=== PATIENT | male | born 1975 ===

== ENCOUNTER 2022-05-23 22:14 | Emergency (ER) | payer BC, SELFPAY ==
[2022-05-23 22:17] VITALS: BP 136/85; PULSE 63; RESP 18; TEMP 36.3; O2SAT 97; BMI 26.6
[2022-05-24 00:08] VITALS: BP 139/87; PULSE 67; RESP 18; O2SAT 96
== END 2022-05-24 03:41 | disposition left against medical advice (07) ==
PROVIDERS: Emergency Provider Emergency Medicine
DX: R51.9 Headache, unspecified (principal)
CPT/HCPCS: 99281; 99283

== ENCOUNTER 2023-06-21 18:22 | Emergency (ER) | payer BC, SELFPAY ==
--- NOTE | ~2023-06-21 | XR_ITS ---
EXAMINATION: XR FOREARM, LEFT CLINICAL INFORMATION: Swelling and redness. COMPARISON: None available. TECHNIQUE: AP and lateral views of the left forearm were obtained. FINDINGS: Diffuse soft tissue swelling more so along the antecubital fossa and anterior forearm. I do not appreciate any radiopaque foreign body or soft tissue gas. Underlying bony structures are unremarkable with no acute fracture or dislocation. XR/XR forearm LT 2V IMPRESSION: Diffuse soft tissue swelling. No radiopaque foreign body or soft tissue gas. No acute underlying bony abnormality.
--- NOTE | ~2023-06-21 | CT_ITS ---
EXAMINATION: CT FOREARM LT WITH IV CONTRAST CLINICAL INFORMATION: Left arm edema and erythema. Concern for necrotizing fasciitis. COMPARISON: None available. TECHNIQUE: Contiguous axial CT scan images of the left forearm obtained after the intravenous administration of 85 mL Omnipaque 350. Sagittal and coronal reformatted images obtained. This CT examination was performed using dose optimization techniques as appropriate, variously including the following: *Automated exposure control *Adjustment of mA and/or kV according to patient size (this includes techniques or standardized protocols for targeted exams where dose is matched to indication/reason for exam; i.e. extremities or head) *Use of iterative reconstruction technique DLP: 192 mGy-cm FINDINGS: The bone mineralization is within normal limits. There is no fracture or bony erosive change. There is cutaneous thickening most pronounced at the proximal forearm associated with subcutaneous infiltration without definitive drainable fluid collection. There is no subcutaneous emphysema. The vascular structures are unremarkable. CT/CT forearm LT w IV con IMPRESSION: No acute osseous abnormality. Cutaneous thickening most prominent at the proximal forearm. Developing phlegmon in this region considered. No definitive drainable fluid collection. No subcutaneous emphysema.
--- NOTE | 2023-06-21 19:03 | ED_ITS ---
HPI - General Adult General Chief complaint: Animal Bite Stated complaint: spider bite Time Seen by Provider: 06/21/23 20:31 Source: patient Mode of arrival: ambulatory Limitations: no limitations History of Present Illness HPI narrative: 48 yold male presents to the ED for left arm spreading redness and warmth after bite unto left arm. patient does not know what bit him. patient denies any fever, chills, chest pain, shortness of breath, IV drug use, or any recent trauma to the area. Related Data Previous Rx's Medication Instructions Recorded cephalexin 500 mg capsule 500 mg PO QID 7 days #28 caps 06/22/23 doxycycline hyclate 100 mg capsule 100 mg PO BID 7 days #14 caps 06/22/23 naproxen 500 mg tablet 500 mg PO BID PRN pain 7 days #14 06/22/23 tabs Allergies Allergy/AdvReac Type Severity Reaction Status Date / Time No Known Allergies Allergy Verified 05/23/22 22:17 [No Known Allergies*] Review of Systems 2 Review of Systems: left arm redness/swelling Yes all other systems are reviewed and are negative [facility] Social History Social History Alcohol intake: current Alcohol intake frequency: a few times a month Smoked in Last 30 Days: No Use of substances other than those prescribed or required for medical reasons: No Advance Directives: No Advance Directives Information Provided: No Physical Exam ED Vital Signs: Vital Signs - 24 hr 06/21/23 19:04 06/21/23 20:12 06/22/23 00:54 Temperature 97.9 F 99.0 F 98.6 F Pulse Rate 100 89 82 Respiratory Rate 20 18 18 Blood Pressure 131/65 140/89 H 136/79 Pulse Oximetry 98 98 98 Oxygen Delivery Method Room Air Room Air Room Air BMI result Body Mass Index 27.4 Const General: cooperative, healthy appearing, comfortable, no acute distress and well developed Orientation/consciousness: oriented to person, oriented to place, oriented to time and patient oriented x3 HENMT Head: Yes normal to inspection, Yes No palpable skull fracture present, Yes normocephalic and Yes atraumatic Eyes General: appearance normal, both eyes and all related structures Neck Neck: Yes normal visual inspection, Yes full ROM, Yes no lymphadenopathy, Yes no meningeal signs, Yes trachea midline, Yes supple, No anterior neck swelling and No tender Chest Chest palpation & inspection: normal inspection of the chest and normal palpation of entire chest wall Resp Effort & Inspection: normal respiratory effort and able to speak in complete sentences Auscultation: clear to auscultation bilaterally Cardio Jugular venous distension: no JVD Heart sounds: S1 normal heart sound present and S2 normal heart sound present GI Inspection: Yes normal to inspection and No abdominal wall ecchymosis Palpation (GI): Soft to palpation, not firm, nontender, no guarding and not rigid General: No CVA tenderness and Yes no CVA tenderness Back/Spine/Pelvis Back: no CVA tenderness, No CVA tenderness and No back tenderness Skin General skin exam: no rashes or lesions noted, elasticity normal and turgor normal Neuro General: oriented to person, oriented to place, oriented to time, patient oriented x3, gait normal, tone normal, moves all extremities, Normal light touch and pain sensation, no meningeal signs, no focal motor deficits, CN's II-XI intact bilaterally and normal sensation to monofilament Extrem Other: Bedside ultrasound based on area of induration and mostly cobblestone cellulitic changes. Barely small amount of pus. Psych Appearance: grossly normal, well kempt and not disheveled Course Course Course Narrative: RME 48-year-old male presents for evaluation abscess to his left forearm. He reports he noticed some sort of bite 5 days ago and yesterday got significantly more painful more red and swollen. Medications Administered Discontinued Medications Generic Name Dose Route Start Last Admin Trade Name Freq PRN Reason Stop Dose Admin Diphenhydramine HCl 25 mg 06/21/23 23:39 06/21/23 23:55 Diphenhydramine Hcl 50 Mg/Ml Vial IVPUSH 06/21/23 23:40 25 mg ONCE ONE Administration Vancomycin HCl 2,000 mg in 500 mls @ 250 mls/hr 06/21/23 20:54 06/21/23 23:05 Vancomycin/Ns IV 06/21/23 22:53 Infused ONCE ONE Infusion Piperacillin Sod/Tazobactam 50 mls @ 100 mls/hr 06/21/23 20:54 06/21/23 21:42 Sod 3.375 gm/ Sodium Chloride IV 06/21/23 21:23 Infused ONCE ONE Infusion Sodium Chloride 1,000 mls @ 999 mls/hr 06/21/23 21:11 06/22/23 00:54 Ns IV 06/21/23 22:11 Infused .Q1H1M STA Infusion Sodium Chloride 1,000 mls @ 999 mls/hr 06/21/23 21:11 06/22/23 00:54 Ns IV 06/21/23 22:11 Infused .Q1H1M STA Infusion Iohexol 100 ml 06/21/23 22:10 06/21/23 22:10 Iohexol 350 Mg/Ml 100 Ml Infus..Btl IV 06/21/23 22:11 85 ml ONCE ONE Administration Methylprednisolone Sodium Succinate 125 mg 06/21/23 23:39 06/21/23 23:55 Methylprednisolone Sod Succ 125 Mg/2 Ml Vial IVPUSH 06/21/23 23:40 125 mg ONCE ONE Administration Medical Decision Making Medical Decision Making [facility] Narrative: 48 yold male presnts to the ED for left forearm redness and warmth after bein bitten by insect. Patient is not aware of what bit him. Patient states no fever or chils. patient is not in distress. Bedside ultrasound barely shows any pus, more cobblestone cellulitc changes. labs was ordered. lactic acid of 3. ESR, CRP, and upper extremity ct scan ordered. 12:35am: Patient lactic improved after fluid. CT scan of left lower extremity negative for necrotizing fasciitis, osteomyelitis, or abscess. Case discussed with Dr. Terry hospitalist who states patient could be discharged and placed on trial of oral antibiotics for cellulitis. Patient is safe for discharge. Patient had allergic reaction to vancomycin and given Benadryl and prednisone. Patient will be discharged with Keflex and ox I Differential Diagnosis Differential Diagnoses: The differential diagnosis associated with the presentation includes (Cellulitis, necrotizing fasciitis, abscess. DVt) Admission/Observation Consideration of admission/observation: Escalation of care including admission/observation considered Consult Healthcare Provider Management of the patient was discussed with: Hospitalist (Dr. Terry) Lab Data [facility] Lab Attestation statement: I reviewed the patient's lab results. 06/21/23 20:07 06/21/23 20:07 Labs: Lab Results 06/21/23 06/21/23 Range/Units 20:07 22:58 WBC 11.0 H (4.8-10.8) X10*3/uL RBC 4.92 (4.60-5.80) X10*6/uL Hgb 15.2 (14.0-18.0) g/dl Hct 45.6 (42.0-52.0) % MCV 92.7 (80.0-98.0) fL MCH 30.9 (27.0-33.0) pg MCHC 33.3 (31.0-36.0) g/dl RDW 13.1 (11.0-16.0) % Plt Count 265 (160-400) X10*3/uL MPV 9.7 (9.4-12.4) fL Immature Gran % (Auto) 0.5 H (0.0-0.4) % Neut % (Auto) 75.4 H (45-73) % Lymph % (Auto) 15.0 L (20-40) % [place] % (Auto) 7.3 (2-11) % Eos % (Auto) 1.4 (0-4) % Baso % (Auto) 0.4 (0-2) % Lymph # (Auto) 1.7 (1.2-4.9) X10*3/uL [place] # (Auto) 0.8 (0.1-1.2) X10*3/uL Eos # (Auto) 0.2 (0.0-0.4) X10*3/uL Baso # (Auto) 0.0 (0.0-0.2) X10*3/uL Abs Immat Gran (auto) 0.05 H (0.00-0.03) X10*3/uL Absolute Neuts (auto) 8.3 (2.0-8.3) x10*3/uL Absolute Nucleated RBC 0.000 (0.0-0.012) X10*3/uL Nucleated RBC % (auto) 0.0 (0.0-0.2) /100WBC ESR 13 (0-15) MM/HR Sodium 142 (135-145) mmol/L Potassium 3.6 (3.3-5.1) mmol/L Chloride 103 (96-108) mmol/L Carbon Dioxide 28 (22-29) mmol/L Anion Gap 15 (12-20) BUN 15 (9-16) mg/dL Creatinine 1.03 (0.5-1.4) mg/dL Estim Creat Clear Calc 83.0 Estimated GFR > 60 Random Glucose 77 (60-115) mg/dL Lactic Acid 3.4 H* (0.5-2.0) mmol/L Lactic Acid F/U @ 2Hr 1.1 (0.5-2.0) mmol/L Calcium 10.2 (8.4-10.2) mg/dL C-Reactive Protein 3.30 H (< or = 0.50) mg/dL Independent Interpretation I performed an independent interpretation of an: Plain X-Ray and CT Scan Radiology Impression Discussion of test interpretation with radiology: I have reviewed the radiologist's reading. External Record Review External record reviewed: Other (Prior Visits) Prescription Management I considered prescription management with: Pain Medication and Antibiotic Discharge Plan Discharge Clinical Impression: Bite by animal, Cellulitis of arm, left Patient Disposition: Home, Self-Care Instructions: Animal Bite (ED), Cellulitis (ED) Additional Instructions: Return to the ED immediately for any worsening redness, increased swelling, fever, chills, chest pain, pus discharge, foul odor, shortness of breath, or any other concerning symptoms. Please follow-up with the primary care provider. Prescriptions: New cephalexin 500 mg capsule 500 mg PO QID 7 Days Qty: 28 0RF doxycycline hyclate 100 mg capsule 100 mg PO BID 7 Days Qty: 14 0RF naproxen 500 mg tablet 500 mg PO BID PRN (Reason: pain) 7 Days Qty: 14 0RF Stand Alone Forms: Work/School Release Interventions: ED Discharge Assessment Last Done: 06/22/23 00:55 Discharge Date/Time: 06/22/23 00:56 Print Language: Mosotho
[2023-06-21 19:04] VITALS: BP 131/65; PULSE 100; RESP 20; TEMP 36.6; O2SAT 98; BMI 27.4
[2023-06-21 20:12] VITALS: BP 140/89; PULSE 89; RESP 18; TEMP 37.2; O2SAT 98
[2023-06-21 20:13] LABS: MANUAL DIFF FLAG NO
--- NOTE | 2023-06-21 20:14 | PC.NURSE ---
pt a&ox4, respirations even and unlabored. pt reports possibly being bit by a spider 5 days ago at his house. he states he is unaware if her was sleeping or awake when the bite happened. pt denies fever, nausea, vomiting diarrhea and chest pains. pt reports his pain is barely there. site is to be noted to be red, warm to touch with raised red bump with a scab in the center of the left forearm. pt vss. iv established and labs obtained and sent at this time.
[2023-06-21 20:15] LABS: Basophils Percent Auto 0.4 % (0-2); Eosinophils Absolute Auto 0.2 X10*3/uL (0.0-0.4); Eosinophils Percent Auto 1.4 % (0-4); Hematocrit 45.6 % (42.0-52.0); Hemoglobin 15.2 g/dl (14.0-18.0); Imm Gran Abs Auto 0.05 X10*3/uL (0.00-0.03); Imm Gran Pct Auto 0.5 % (0.0-0.4); Lymphocytes Absolute Auto 1.7 X10*3/uL (1.2-4.9); Mean Corpuscular HGB Conc 33.3 g/dl (31.0-36.0); Mean Corpuscular Hemoglobin 30.9 pg (27.0-33.0); Mean Corpuscular Volume 92.7 fL (80.0-98.0); Mean Platelet Volume 9.7 fL (9.4-12.4); Monocytes Absolute Auto 0.8 X10*3/uL (0.1-1.2); Monocytes Percent Auto 7.3 % (2-11); Neutrophils Absolute Auto 8.3 x10*3/uL (2.0-8.3); Neutrophils Percent Auto 75.4 % (45-73); Platelet Count 265 X10*3/uL (160-400); Red Blood Count 4.92 X10*6/uL (4.60-5.80); Red Cell Distribution Width 13.1 % (11.0-16.0)
[2023-06-21 20:33] LABS: Anion Gap 15 (12-20); Blood Urea Nitrogen 15 mg/dL (9-16); Calcium 10.2 mg/dL (8.4-10.2); Carbon Dioxide 28 mmol/L (22-29); Chloride 103 mmol/L (96-108); Estimated Glomerular Filt Rate > 60; Glucose Random 77 mg/dL (60-115); Potassium 3.6 mmol/L (3.3-5.1); Sodium 142 mmol/L (135-145)
[2023-06-21 20:40] LABS: Lactic Acid 3.4 mmol/L (0.5-2.0)
--- NOTE | 2023-06-21 20:41 | PC.NURSE ---
this RN received critical lab results for this pt - lactic acid 3.4 - ED provider Jim Chris notified and aware at this time.
[2023-06-21] MEDS: Piperacillin Sodium/Tazobactam 3.375 GM in 0.9 % Sodium Chloride 50 ML IV (21:07)
--- NOTE | 2023-06-21 21:25 | PHA.MEDREC ---
Pharmacy Consult ? Medication Reconciliation Pharmacy has completed the medication reconciliation. Patient reports no medications at home. Mirtha Meng, AlphonsoD
[2023-06-21] MEDS: vancomycin/NS 2,000 MG/500 ML PLAST..BAG 250 MG IV (21:38)
[2023-06-21] MEDS: 0.9 % Sodium Chloride 1,000 ML 999 ML IV ×2 (21:38→23:04)
--- NOTE | 2023-06-21 21:42 | PC.NURSE ---
first liter of fluid and vanco hanging and running at this time. pt tolerating well.
[2023-06-21 21:43] LABS: Erythrocyte Sedimentation Rate 13 MM/HR (0-15)
[2023-06-21] MEDS: iohexoL 350 MG/ML 100 ML INFUS..BTL IV (22:10)
[2023-06-21 22:11] LABS: Reflex Lactate? Lactic Acid Added
--- NOTE | 2023-06-21 22:15 | PC.NURSE ---
delay in second bag of fluids due to pt only having one line and having the first bag and vanco currently running.
--- NOTE | 2023-06-21 23:04 | PC.NURSE ---
pt reporting itching neck and hives after 300ML of the vancomycin. Jim ACE checked out pt, verbal order to d/c vanco at this time. pt air way patent and pt speaking in full sentences.
[2023-06-21 23:16] LABS: ~Lactic Acid-LAB USE ONLY 1.1 mmol/L (0.5-2.0)
[2023-06-21] MEDS: diphenhydrAMINE HCL 50 MG/ML VIAL 25 MG IVPUSH (23:55)
[2023-06-21] MEDS: methylPREDNISolone Sod Succ 125 MG/2 ML VIAL IVPUSH (23:55)
[2023-06-22 00:54] VITALS: BP 136/79; PULSE 82; RESP 18; TEMP 37; O2SAT 98
== END 2023-06-22 00:56 | disposition home or self-care (01) ==
PROVIDERS: Physician Assistant; Emergency Provider Internal Medicine; PCP Nurse Practitioner Family
DX: L03.114 Cellulitis of left upper limb (principal); T63.301A Toxic effect of unspecified spider venom, accidental (unintentional), initial encounter; M79.602 Pain in left arm; Y92.9 Unspecified place or not applicable; Z79.899 Other long term (current) drug therapy
CPT/HCPCS: 36415; 73090; 73201; 80048; 83605; 85025; 85652; 86140; 87040; 96361; 96365; 96375; 99285; J1200; J2543; J2930; J3370; Q9967

== ENCOUNTER 2024-05-09 05:53 | Emergency (ER) | payer SELFPAY ==
[2024-05-09 05:55] VITALS: BP 104/58; PULSE 78; RESP 17; TEMP 36.6; BMI 28.1
[2024-05-09 06:39] VITALS: BP 106/67; PULSE 73; RESP 17; TEMP 36.8; O2SAT 97
--- NOTE | 2024-05-09 06:40 | ED.GENADULT ---
HPI - General Adult General Chief complaint: Abdominal Pain Stated complaint: abd pain Time Seen by Provider: 05/09/24 06:40 History of Present Illness ED Provider: Marla NEGRO narrative: The patient is a 48 year-old male who is generally in good health. He says that for the last 3 weeks he has been having intermittent pains in his left groin. Sometimes he feels that his pain is in his testicles. Sometimes he feels the discomfort is in the rectum. Works for [employer] and often has to do significant lifting. He says he can not really relate the pain to a particular episode of lifting but he does acknowledge that when he rests the pain is less likely to bother him then when he is active and lifting. He has had no difficulty urinating. He has had no change in his bowel habits. He has had no fever, sweats, chills. He has not noticed any swelling in his left groin. The pain has been intermittent for 3 weeks. This morning he was at work (he works the overnight shift) at [employer] when his pain seemed to get worse after doing lifting. He told his division supervisor that he was quite uncomfortable and he came to the hospital. The patient says he is on no medications. He last had a primary care doctor 2 years ago. He does not currently have insurance and would like to minimize testing. He says he will have insurance active in 3 weeks. Related Data Previous Rx's ?Medication ?Instructions ?Recorded cephalexin 500 mg capsule 500 mg PO QID 7 days #28 caps 06/22/23 doxycycline hyclate 100 mg capsule 100 mg PO BID 7 days #14 caps 06/22/23 naproxen 500 mg tablet 500 mg PO BID PRN pain 7 days #14 06/22/23 tabs Allergies Allergy/AdvReac Type Severity Reaction Status Date / Time No Known Allergies Allergy Verified 05/09/24 05:56 [No Known Allergies*] Review of Systems Review of Systems: Yes all other systems are reviewed and are negative [facility] Social History Social History Alcohol intake: current Alcohol intake frequency: a few times a month Advance Directives: No Advance Directives Information Provided: No Do you have a plan to hurt others: No Plan Physical Exam ED Vital Signs: Vital Signs - 24 hr 05/09/24 05:55 05/09/24 06:39 05/09/24 07:14 Temperature 97.9 F 98.3 F 98.3 F Pulse Rate 78 73 73 Respiratory Rate 17 17 17 Blood Pressure 104/58 L 106/67 106/67 Pulse Oximetry 97 97 Oxygen Delivery Method Room Air Room Air Room Air BMI result Body Mass Index 28.1 Const Other: Alert, pleasant, cooperative. He does not appear in acute distress HENMT Other: Face is symmetrical, mucous membranes moist. Eyes General: appearance normal, both eyes and all related structures Conjunctivae: conjunctivae normal Pupils: Equal, round and reactive pupils present EOM: EOMs intact bilaterally Neck Neck: Yes full ROM Resp Effort & Inspection: normal respiratory effort Auscultation: clear to auscultation bilaterally Cardio Rate: regular rate Rhythm: regular rhythm Heart sounds: S1 normal heart sound present and S2 normal heart sound present GI Other: The abdomen is soft and nontender. no distension. Other: The patient has normal external genitalia. No scrotal swelling. Scrotal contents are normal. Evaluation of the left inguinal canal for hernia did not demonstrate any palpable hernial sac in the inguinal canal. However when I palpate over the inguinal canal externally I thought I felt something that might have been a small hernial sac that was mobile. Skin Other: Skin is dry and unremarkable Neuro Other: the patient is awake and alert with normal mental status. He has grossly intact cranial nerves and moves his extremities normally. Gait is normal. He is grossly neurologically intact. Cranial nerves: Yes Equal, round and reactive pupils present Extrem Other: No peripheral edema Medical Decision Making Medical Decision Making MDM Narrative: the patient is a 48-year-old male who presents with 3 weeks of intermittent left groin pain. Clinically I think the patient's physical exam is suggestive of a left inguinal hernia which is not extending into the scrotal sac. I suspect this might be a direct hernia. I do not believe he has any incarcerated or strangulated hernia. I think the patient may be referred to the outpatient surgical clinic for further management of this problem. In the meantime I have written a work note for light duty and no heavy lifting. He should return if worse. Discharge Plan Discharge Clinical Impression: Left inguinal hernia Patient Disposition: Home, Self-Care Instructions: Inguinal Hernia (ED) Additional Instructions: I think the most likely explanation for your symptoms is a left groin hernia. Please contact the surgery office to set up an appointment for further management of this problem. In the meantime I would avoid any heavy lifting or straining or any other activities that might exacerbate your discomfort. If you feel things are particularly bad I would recommend lying down and trying to massage your hernia back into place. If significantly uncomfortable please return to the emergency department for further evaluation. Prescriptions: No Action cephalexin 500 mg capsule 500 mg PO QID 7 Days Qty: 28 0RF doxycycline hyclate 100 mg capsule 100 mg PO BID 7 Days Qty: 14 0RF naproxen 500 mg tablet 500 mg PO BID PRN (Reason: pain) 7 Days Qty: 14 0RF Referrals: [facility] [Provider Group] (Left inguinal hernia) Stand Alone Forms: Work/School Release Interventions: ED Discharge Assessment Last Done: 05/09/24 07:14 Discharge Date/Time: 05/09/24 07:20 Print Language: [place] Citizen
--- NOTE | 2024-05-09 07:11 | PC.NURSE ---
Pt comes to ED today from work with c/o L abd pain x2-3 months. VSS, A&Ox3, walk independently. Pt seen by ED Provider and set for D/C. Pt reports D/C insurance not being active just yet he is not in need of further treatment as his pain is from a L sided hernia. Pt declines further care and requets d/c paperwork and work note.
[2024-05-09 07:14] VITALS: BP 106/67; PULSE 73; RESP 17; TEMP 36.8; O2SAT 97
== END 2024-05-09 07:20 | disposition home or self-care (01) ==
PROVIDERS: Emergency Provider Emergency Medicine
DX: K40.90 Unilateral inguinal hernia, without obstruction or gangrene, not specified as recurrent (principal); R10.32 Left lower quadrant pain; K62.89 Other specified diseases of anus and rectum; N50.812 Left testicular pain; N50.811 Right testicular pain
CPT/HCPCS: 99283; 99284

== ENCOUNTER 2024-07-11 09:11 | Outpatient (AMB) | payer BC, SELFPAY ==
--- NOTE | 2024-07-11 09:15 | A.OFFVIS_ITS ---
Vital Signs 07/11/24 09:22 Height 5 ft 8 in Weight 184 lb BMI 28.0 BP 120/60 Blood Pressure Location Rt brachial Position Sitting Pulse 76 Intake Visit Reasons: Inguinal Hernia Intake Note: Patient referred after ER visit on 05-09-2024 for inguinal hernia. Present for 4-5m. Patient c/o: pain with certain movements. Retail Representative Required: No Accompanied by: Self / Same As Patient Allergies No Known Allergies [No Known Allergies*] Allergy (Verified 07/11/24 09:20) HPI Comments Details: Patient presents with a 5 month history of symptomatic enlarging left inguinal hernia. Because of progression of symptoms, he presents here for further evaluation and would like to have it repaired. Patient was employed with [employer] and the significant heavy lifting at his place of employment. Patient states that on occasion of the hernia has protruded with strenuous activities and the patient was to manually reduce it himself. He has no other GI issues or complaints. He is tolerating a diet. Having regular bowel habits. Chart was reviewed and patient evaluated [facility] Medical History (Updated 07/11/24 @ 09:21 by WOODY Meyers) Rotator cuff arthropathy of left shoulder Social History (Updated 07/11/24 @ 09:21 by WOODY Meyers) Alcohol intake: current Alcohol intake frequency: a few times a month Patient Tobacco Use Status: Never used Tobacco Physical Exam Vital Signs: Last Vital Signs Pulse 76 07/11/24 09:22 BP 120/60 07/11/24 09:22 BMI result Body Mass Index 28.0 Chest Other: Chest breath sounds bilaterally, HS 1 in 2 GI Other: Patient was examined both supine and standing with Valsalva. Abdomen is soft and benign. Right groin negative. Genitalia within normal limits. Small to moderately sized reducible left inguinal hernia. Assessment & Plan Assessment & Plan (1) Left inguinal hernia: Code(s): K40.90 - Unilateral inguinal hernia, without obstruction or gangrene, not specified as recurrent Category: Medical Plan Risks, benefits, and alternatives of open left inguinal hernia repair with mesh were reviewed with the patient and included but not limited to bleeding, infection, recurrence, numbness, pain, scarring and the patient wished to proceed. All questions answered. Arrangements were made for this. Medications: Refilled doxycycline hyclate 100 mg PO BID 14 caps 0RF 7 days Discontinued cephalexin Discontinued Reason: Patient no longer taking 500 mg PO QID 7 days 28 caps 0RF Coding Level of Care Code New Pt Level 5 (98817) Diagnoses Left inguinal hernia K40.90
[2024-07-11 09:22] VITALS: BP 120/60; PULSE 76; BMI 28.0
== END 2024-07-11 09:35 | disposition home or self-care (01) ==
PROVIDERS: Visit Provider Surgery
DX: K40.90 Unilateral inguinal hernia, without obstruction or gangrene, not specified as recurrent (principal)
CPT/HCPCS: 99204

== ENCOUNTER 2024-08-25 09:21 | Day surgery (SDC) | payer BC, SELFPAY ==
[2024-08-23 13:45] VITALS: BMI 28.0
--- NOTE | 2024-08-23 14:42 | HO.ANESPROP2 ---
Documented by User: Cassy Sifuentes NP 08/23/24 14:43 HPI - Anesthesia Eval Consult details Narrative: 49yo M for Repair Hernia Inguinal with mesh [facility] Past Medical History Medical History Rotator cuff arthropathy of left shoulder Surgical History Surgical History Surgical history unknown Social History Social History Are you a primary customer care representative to a significant other at home: No Do you presently have visiting nurse or other home services: No Alcohol intake: current Alcohol intake frequency: a few times a month Patient Tobacco Use Status: Never used Tobacco Have you been hit, kicked, punched, or otherwise hurt by someone within the past year? If so, by whom?: No Are you DNR?: No Advance Directives: No Advance Directives Information Provided: Yes Recently lost weight without trying: No Nutrition Risks: No Nutritional Risk Meds Allergies Allergy/AdvReac Type Severity Reaction Status Date / Time No Known Allergies Allergy Verified 08/25/24 09:53 [No Known Allergies*] Exam Height,Weight and Vital Signs: Height 5 ft 8 in Weight 83.461 kg Assessment and Plan Assessment Anesthesia Assessment: Chart Reviewed Documented by User: Lisa Brandt MD 08/25/24 10:04 [facility] Past Medical History Medical History Rotator cuff arthropathy of left shoulder Surgical History Surgical History Surgical history unknown History of Problems with Anesthesia: No Social History Social History Are you a primary customer care representative to a significant other at home: No Do you presently have visiting nurse or other home services: No Alcohol intake: current Alcohol intake frequency: a few times a month Patient Tobacco Use Status: Never used Tobacco Have you been hit, kicked, punched, or otherwise hurt by someone within the past year? If so, by whom?: No Are you DNR?: No Advance Directives: No Advance Directives Information Provided: Yes Recently lost weight without trying: No Nutrition Risks: No Nutritional Risk Meds Allergies Allergy/AdvReac Type Severity Reaction Status Date / Time No Known Allergies Allergy Verified 08/25/24 09:53 [No Known Allergies*] Exam Airway Mallampati Class: II TM Dist: >3cm Neck ROM: Full Loose/Missing/Broken Teeth: No Heart: RRR Lungs: CTA Assessment and Plan Assessment Anesthesia Assessment: Anesthesia Plan Discussed Final Anesthetic Review History of Problems with Anesthesia: No NPO: Yes ASA Class: I Final Preanesthetic Review: Meds/Allgs Chart Reviewed, Consent Obtained/Reviewed and Anes Risks/Benef Reviewed Patient Risk: Low Procedure Risk: Low Anesthetic Plan Anesthetic Plan: GA Disposition: Standard PACU
--- NOTE | 2024-08-24 13:39 | MHC.SHP ---
Pre-Procedural Eval Section A - 24 Hr Update-Section A only Date of Service: 08/25/24 The patient is an INPATIENT: No Changes since office visit: No Cold of Flu in the past 2 weeks, No New Medical Problems, No Changes in Medication and No Patient answered all questions Section B - Complete if H&P > 30 days Chief Complaint: Unilateral inguinal hernia, without obstruction Allergies: Allergies Allergy/AdvReac Type Severity Reaction Status Date / Time No Known Allergies Allergy Verified 07/11/24 09:20 [No Known Allergies*] Review of Systems Sugical H&P ROS: Negative: Constitution, Cardiovascular, Respiratory, Neurological, Psychiatric, Hem-Onc, Allergic/Immunologic, Gastrointestinal, Genitourinary, Musculoskeletal, Integumentary, Endocrine and Eyes/Ears/Nose/Throat Exam Surgical H&P Exam: Normal: HEENT, Normal: Heart, Normal: Lungs, Normal: Extremities, Normal: Abdomen, Normal: Skin and Normal: Neurological Plan I have reviewed the history and physical and performed a pertinent physical examination on my patient. No changes have occurred unless specified. Time Spent With Patient Time: Total time managing care of this patient today ____ minutes.
[2024-08-25] VITALS (7 sets, daily range): BP systolic 111–125; BP diastolic 55–78; PULSE 67–92; RESP 16–18; TEMP 36.7–37.4; O2SAT 97–100; BMI 27.4
[2024-08-25] MEDS: Lactated Ringers 1,000 ML 100 ML IVCONT (10:02)
--- NOTE | 2024-08-25 11:10 | P.OP_ITS ---
Operative Note Operative Note Date of Service: 08/25/24 Narrative: Preoperative diagnosis: [] Symptomatic enlarging left inguinal hernia Postop diagnosis: [] The same Procedure [] open left inguinal herniorrhaphy with Bard mesh Surgeon: [] [employer] Training Representative: [] Type of Anesthesia: [] General Indication for surgery: [] Large indirect hernia sac. No indirect hernia demonstrated. Findings: [] Patient brought to the operating room, placed on operative table supine position, after adequate level general anesthesia was induced, the left groin was prepped and draped in usual sterile fashion using a small left para inguinal incision, this carried down through skin, subcutaneous tissue, Preeti's fascia. External oblique fibers were opened their direction with care to isolate and preserve the ilioinguinal nerve throughout the procedure. Spermatic cord was identified and retracted from the field. Large indirect hernia sac was from the cord and reduced. No direct hernia was demonstrated. A Bard plug was placed in the indirect defect, and sutured inferiorly to the inguinal ligament, and superiorly to the transversalis fascia using interrupted 0 Ethibond suture. Grasped also covered the inguinal floor. At completion, graft was in good position with no gaps or tension. Wound was irrigated, secured hemostasis, and closed in the following manner; external oblique fascia was closed using running 2-0 Vicryl suture. Preeti's fascia was reapproximated using interrupted 3-0 Vicryl suture. Interrupted inverted deep dermal 3-0 Vicryl sutures followed by running subcuticular 4-0 Vicryl sutures were placed. Steri-Strips and sterile dressings were applied. Wound was infiltrated at the beginning of the case with ilioinguinal block and local infiltration as well at the end with 0.5% Marcaine/1% lidocaine. Sponge, needle, and instrument counts reported correct. Patient tolerated the procedure well and emerged from anesthesia stable condition. EBL minimal. Ipsilateral testicle was intrascrotal at completion.
== END 2024-08-25 12:24 | disposition home or self-care (01) ==
PROVIDERS: Visit Provider Surgery
PROC: (CPT 49505; principal; 2024-08-25 11:00)
DX: K40.90 Unilateral inguinal hernia, without obstruction or gangrene, not specified as recurrent (principal)
CPT/HCPCS: 49505; C1781; J0131; J0690; J1100; J1885; J2003; J2250; J2405; J2704; J2795; J3010

== ENCOUNTER → 2024-08-25 09:21 | Outpatient (BNV) | payer BC, SELFPAY | PROVIDERS: Visit Provider Surgery | DX: K40.90 Unilateral inguinal hernia, without obstruction or gangrene, not specified as recurrent (principal) | CPT/HCPCS: 49505 ==

== ENCOUNTER 2024-09-04 12:53 | Outpatient (AMB) | payer BC, SELFPAY ==
[2024-09-04 12:54] VITALS: BMI 27.5
--- NOTE | 2024-09-04 12:54 | A.OFFVIS_ITS ---
Vital Signs 09/04/24 12:54 Height 5 ft 8 in Weight 180 lb 12.465 oz BMI 27.5 Intake Visit Reasons: s/p LIH repair w/mesh Intake Note: Patient in office today in follow up s/p LIH repair w/mesh. CC: Patient reports doing well and denies having any pain today. [employer] Care Manager Required: No Accompanied by: Self / Same As Patient Allergies No Known Allergies [No Known Allergies*] Allergy (Verified 09/04/24 12:57) HPI Comments Details: Status post left inguinal hernia repair. Patient was doing well. Starting a diet. Having regular bowel habits. He is increasing his activity level [facility] Medical History (Updated 09/04/24 @ 13:10 by VIK Enriquez) Left inguinal hernia (08/25/24) Rotator cuff arthropathy of left shoulder Surgical History (Updated 09/04/24 @ 14:13 by Sky Cano MD) Hx of colonoscopy Social History Are you a primary primary care pediatrician to a significant other at home: No Do you presently have visiting nurse or other home services: No Alcohol intake: current Alcohol intake frequency: a few times a month Patient Tobacco Use Status: Never used Tobacco Physical Exam Vital Signs: BMI result Body Mass Index 27.5 GI Other: Abdomen is soft, benign incision clean dry and intact healing very well Assessment & Plan Assessment & Plan (1) Status post inguinal hernia repair using synthetic patch: Code(s): Z98.890 - Other specified postprocedural states; Z87.19 - Personal history of other diseases of the digestive system Category: Medical Plan Patient was been given local instructions, and will otherwise Coding Level of Care Code Global (98050) Diagnoses Status post inguinal hernia repair using synthetic patch Z98.890; Z87.19
== END 2024-09-04 13:22 | disposition home or self-care (01) ==
PROVIDERS: Visit Provider Surgery
DX: Z98.890 Other specified postprocedural states (principal); Z87.19 Personal history of other diseases of the digestive system
CPT/HCPCS: 99024